=== PATIENT | male | born 1975 | race Caucasian/White ===

== ENCOUNTER → 2018-07-27 | Outpatient (CLI) | payer OTHER ==
[~2018-07-27] MED LIST: LORA1 PO; MORP20L SL; PROM25 PO; Prilosec Otc20 MG
[2018-07-27 18:55] LABS: BASOPHILS ABSOLUTE AUTO 0.08 K/mm3 (0.00-0.23); BASOPHILS PERCENT AUTO 1 % (0-2); EOSINOPHILS ABSOLUTE AUTO 0.15 K/mm3 (0.00-0.68); EOSINOPHILS PERCENT AUTO 2 % (0-6); Hematocrit 29.5 % (37.0-53.0); Hemoglobin 10.5 g/dL (13.5-17.5); IMMATURE GRAN ABSOLUTE AUTO 0.05 K/mm3 (0.00-0.10); IMMATURE GRAN PERCENT AUTO 1 % (0-1); LYMPHOCYTES PERCENT AUTO 17 % (21-46); MONOCYTES ABSOLUTE AUTO 0.97 K/mm3 (0.16-1.47); MONOCYTES PERCENT AUTO 12 % (4-13); Mean Corpuscular HGB 38.3 pg (26.0-34.0); Mean Corpuscular HGB Conc 35.6 g/dL (31.5-36.5); Mean Corpuscular Volume 108 fL (80-100); Mean Platelet Volume 8.9 fL (9.1-12.4); NEUTROPHILS ABSOLUTE AUTO 5.25 K/mm3 (1.96-9.15); NEUTROPHILS PERCENT AUTO 67 % (41-73); NRBC ABSOLUTE 0.05 K/mm3 (0.00-0.02); NRBC Auto 0.6 /100 WBC (0.0-0.2); RDW Coefficient Variation 17.2 % (11.7-14.2); RDW Standard Deviation 67.9 fL (35.1-46.3); Red Blood Cell Count 2.74 M/mm3 (4.30-5.90)
[2018-07-27 19:07] LABS: Anion Gap 9 mmol/L (6-16); Blood Urea Nitrogen 3 mg/dL (8-24); Bun/Creatinine Ratio 5.4 (12.0-20.0); CO2, Blood 27 mmol/L (21-32); Calcium, Blood 8.3 mg/dL (8.5-10.1); Chloride, Blood 100 mmol/L (98-108); Creatinine, Blood 0.56 mg/dL (0.60-1.20); Glomerular Filtration Rate >60 (60-); Glucose, Blood 121 mg/dL (70-99); Potassium, Blood 3.4 mmol/L (3.5-5.5); Sodium, Blood 136 mmol/L (136-145)
[2018-07-27 19:16] LABS: Platelet Count 96 K/mm3 (150-400)
== END | disposition home or self-care (01) ==
LOC: LAB EV 18:50 → LAB SHORT 18:50
PROVIDERS: Family Medicine
DX: L03.031 Cellulitis of right toe (principal)
CPT/HCPCS: 80048; 85025; 87040; 87077; 87186

== ENCOUNTER 2018-09-25 16:51 | Inpatient (IN) | payer OTHER ==
[~2018-09-25] VITALS: Ht 167.6 cm; Wt 109.4 kg
[2018-09-25 17:37] LABS: BASOPHILS ABSOLUTE AUTO 0.06 K/mm3 (0.00-0.23); BASOPHILS PERCENT AUTO 1 % (0-2); EOSINOPHILS ABSOLUTE AUTO 0.13 K/mm3 (0.00-0.68); EOSINOPHILS PERCENT AUTO 1 % (0-6); Hematocrit 30.3 % (37.0-53.0); Hemoglobin 11.1 g/dL (13.5-17.5); IMMATURE GRAN ABSOLUTE AUTO 0.15 K/mm3 (0.00-0.10); IMMATURE GRAN PERCENT AUTO 2 % (0-1); LYMPHOCYTES ABSOLUTE AUTO 0.63 K/mm3 (0.84-5.20); LYMPHOCYTES PERCENT AUTO 6 % (21-46); MONOCYTES ABSOLUTE AUTO 1.12 K/mm3 (0.16-1.47); MONOCYTES PERCENT AUTO 11 % (4-13); Mean Corpuscular HGB 39.2 pg (26.0-34.0); Mean Corpuscular HGB Conc 36.6 g/dL (31.5-36.5); Mean Corpuscular Volume 107 fL (80-100); Mean Platelet Volume 9.2 fL (9.1-12.4); NEUTROPHILS ABSOLUTE AUTO 7.76 K/mm3 (1.96-9.15); NEUTROPHILS PERCENT AUTO 79 % (41-73); NRBC ABSOLUTE 0.06 K/mm3 (0.00-0.02); NRBC Auto 0.6 /100 WBC (0.0-0.2); Platelet Count 97 K/mm3 (150-400); RDW Coefficient Variation 17.3 % (11.7-14.2); RDW Standard Deviation 66.8 fL (35.1-46.3); Red Blood Cell Count 2.83 M/mm3 (4.30-5.90); White Blood Cell Count 9.85 K/mm3 (4.00-11.30)
[2018-09-25 18:11] LABS: Albumin, Blood 1.9 g/dL (3.4-5.0); Albumin/Globulin Ratio 0.4 (0.8-1.8); Bilirubin, Total 38.1 mg/dL (0.1-1.0); Bun/Creatinine Ratio 15.2 (12.0-20.0); Calcium, Blood 8.2 mg/dL (8.5-10.1); Creatinine, Blood 1.58 mg/dL (0.60-1.20); Globulin, Blood 5.2 g/dL (2.2-4.0); Total Protein, Blood 7.1 g/dL (6.4-8.2)
[2018-09-25] MEDS ORDERED: Prilosec Otc20 MG (18:43)
[2018-09-25 19:03] LABS: Ethanol (Alcohol), Blood, Med <3 mg/dL
[2018-09-25 19:42] LABS: International Normalized Ratio 2.62; Prothrombin Time Results 25.4 Sec (9.7-11.5)
[2018-09-25 20:33] LABS: RETIC HGB EQUIVALENT 41.8 pg (28.20-36.60); RETICULOCYTE ABSOLUTE 0.2515 M/mm3 (0.0200-0.1100); RETICULOCYTE COUNT PERCENT 8.92 % (0.50-2.50)
[2018-09-26 05:26] LABS: BASOPHILS ABSOLUTE AUTO 0.02 K/mm3 (0.00-0.23); BASOPHILS PERCENT AUTO 0 % (0-2); EOSINOPHILS ABSOLUTE AUTO 0.03 K/mm3 (0.00-0.68); EOSINOPHILS PERCENT AUTO 0 % (0-6); Hematocrit 28.2 % (37.0-53.0); Hemoglobin 10.3 g/dL (13.5-17.5); IMMATURE GRAN ABSOLUTE AUTO 0.11 K/mm3 (0.00-0.10); IMMATURE GRAN PERCENT AUTO 1 % (0-1); LYMPHOCYTES ABSOLUTE AUTO 0.37 K/mm3 (0.84-5.20); LYMPHOCYTES PERCENT AUTO 4 % (21-46); MONOCYTES ABSOLUTE AUTO 0.43 K/mm3 (0.16-1.47); MONOCYTES PERCENT AUTO 4 % (4-13); Mean Corpuscular HGB 38.1 pg (26.0-34.0); Mean Corpuscular HGB Conc 36.5 g/dL (31.5-36.5); Mean Platelet Volume 9.1 fL (9.1-12.4); NEUTROPHILS ABSOLUTE AUTO 9.31 K/mm3 (1.96-9.15); NEUTROPHILS PERCENT AUTO 91 % (41-73); NRBC ABSOLUTE 0.05 K/mm3 (0.00-0.02); NRBC Auto 0.5 /100 WBC (0.0-0.2); Platelet Count 92 K/mm3 (150-400); RDW Standard Deviation 63.6 fL (35.1-46.3); White Blood Cell Count 10.27 K/mm3 (4.00-11.30)
[2018-09-26 05:36] LABS: Mean Corpuscular Volume 104 fL (80-100)
[2018-09-26 06:29] LABS: Percent Saturation 78.9 % (20.0-50.0)
[2018-09-26 07:09] LABS: Albumin, Blood 1.7 g/dL (3.4-5.0); Albumin/Globulin Ratio 0.4 (0.8-1.8); Bilirubin, Total 36.1 mg/dL (0.1-1.0); Bun/Creatinine Ratio 17.1 (12.0-20.0); Calcium, Blood 8.4 mg/dL (8.5-10.1); Creatinine, Blood 1.52 mg/dL (0.60-1.20); Globulin, Blood 4.8 g/dL (2.2-4.0); Potassium, Blood 2.7 mmol/L (3.5-5.5); Total Protein, Blood 6.5 g/dL (6.4-8.2)
--- NOTE | 2018-09-26 07:23 | NUR ---
a+o, but sleepy, iv in RAC positional so frequently moved arm very little respons from pt, jandiced r/hreditary, critical lactic acid reported to cn trending down so no call to hospitalist, call light in reach, ns infusing with no s/sx of infection or infiltration, room air
--- NOTE | 2018-09-26 14:24 | NUR ---
Initial Visit: Palliative Care Consult for advanced care planning. Pt is A&O but appears to be confused at times as evidenced by lack of response to questions. Skin is jaundice and appears mildly lethargic. Pt's terri Fleming present during visit. Engaged in therapeutic conversation regarding Pt's goals of care. Bernadette helps with discussion due to Pt's intermittent confusion. Pt lives at home with Bernadette and her 10 year old daughter. Pt also has a 24 year old daughter that lives close by. Bernadette reports adequate support between herself, Pt's oldest daughter and his parents. Bernadette reports the goals are to do interventions to keep his cirrohis from progressing too fast. Pt's wishes are to abstain from drinking and reports his last drink was on Super [employer] Friday. Pt and Bernadette are also interested in education about appropriate foods to eat. Discussed AD/POLST with Pt and Bernadette. Both expresses interest. Educated on AD and POLST with the importance of discussion with family so all parties are aware of Pt's wishes. Pt reports no other concerns at this time. Spoke with Pt's nurse Harvey and he reports no concerns at this time. Spoke with Dr Boyce earlier in the day and requested to have discussion with Pt on advance care plan. Plan: Placed Dietitian referral. Obtain copy of POLST/AD once completed. Will remain available.
--- NOTE | 2018-09-26 23:46 | NUR ---
PT WAS ADMINISTERED IV POTASSIUM PER ORDER. PT WAS PLACED ON TELEMETRY MONITORING DURING THAT ADMINISTRATION PER PROTOCOL. THE INFUSION HAS NOW COMPLETED AND THE TELEMETRY MONITORING HAS BEEN DISCONTINUED. PT TOLERATED THE INFUSION WITHOUT ADVERSE EFFECTS.
--- NOTE | 2018-09-27 05:24 | NUR ---
VSS, AFEBRILE, A/O BUT DELAYED RESPONSES, SBA TO BSC, AT THE BEDSIDE AND VERY HELPFUL, JAUNDICE, ASCITES, VERY RESTLESS UNTIL AFTER MIDNOC, THEN SLEPT WELL, NEW 20G IN R FA, TELE USED DURING K+ RIDER, THEN D/C'D, IV ALBUMIN BID, FREQ MESS IN THE BATHROOM NEEDS HOUSEKEEPING TO CLEAN, ASK FIRST BEFORE GIVING LACTULOSE DUE TO UNCONTROLLABLE DIARRHEA
[2018-09-27 07:58] LABS: BASOPHILS ABSOLUTE AUTO 0.01 K/mm3 (0.00-0.23); BASOPHILS PERCENT AUTO 0 % (0-2); EOSINOPHILS ABSOLUTE AUTO 0.04 K/mm3 (0.00-0.68); EOSINOPHILS PERCENT AUTO 0 % (0-6); Hematocrit 24.4 % (37.0-53.0); Hemoglobin 8.7 g/dL (13.5-17.5); IMMATURE GRAN PERCENT AUTO 1 % (0-1); LYMPHOCYTES ABSOLUTE AUTO 0.74 K/mm3 (0.84-5.20); LYMPHOCYTES PERCENT AUTO 7 % (21-46); MONOCYTES ABSOLUTE AUTO 1.13 K/mm3 (0.16-1.47); MONOCYTES PERCENT AUTO 10 % (4-13); Mean Corpuscular HGB 38.5 pg (26.0-34.0); Mean Corpuscular HGB Conc 35.7 g/dL (31.5-36.5); Mean Platelet Volume 9.1 fL (9.1-12.4); NEUTROPHILS ABSOLUTE AUTO 9.04 K/mm3 (1.96-9.15); NEUTROPHILS PERCENT AUTO 82 % (41-73); NRBC ABSOLUTE 0.07 K/mm3 (0.00-0.02); NRBC Auto 0.6 /100 WBC (0.0-0.2); Platelet Count 81 K/mm3 (150-400); RDW Coefficient Variation 17.5 % (11.7-14.2); RDW Standard Deviation 67.8 fL (35.1-46.3); Red Blood Cell Count 2.26 M/mm3 (4.30-5.90); White Blood Cell Count 11.06 K/mm3 (4.00-11.30)
[2018-09-27 08:08] LABS: Mean Corpuscular Volume 108 fL (80-100)
[2018-09-27 08:15] LABS: International Normalized Ratio 2.34
[2018-09-27 08:36] LABS: Albumin, Blood 2.5 g/dL (3.4-5.0); Albumin/Globulin Ratio 0.7 (0.8-1.8); Bilirubin, Total 39.6 mg/dL (0.1-1.0); Calcium, Blood 8.6 mg/dL (8.5-10.1); Creatinine, Blood 1.62 mg/dL (0.60-1.20); Globulin, Blood 3.5 g/dL (2.2-4.0); Potassium, Blood 2.5 mmol/L (3.5-5.5)
--- NOTE | 2018-09-27 16:44 | NUR ---
PERMISSION TO PROVIDE CARE. PATIENT GAVE ME PERMISSION TO PROVIDE CARE AND ACCESS CHART ON 09/28/18
--- NOTE | 2018-09-27 17:11 | NUR ---
SHIFT SUMMARY. PT MORE LETHARGIC AND CONFUSED THIS AM THAN YESTERDAY. PT BECAME MORE ALERT AND ORIENTATED DAY PROGRESSED TO AFTERNOON. SEVERAL FRIENDS AND FAMILY IN ROOM, PT WAS ENGAGING WELL. PT DENIES PAIN, SOB, N/V. CONTINES WITH LOW POTASSIUM THAT WAS SUPPLMENTED TODAY. CLINIMIX STARTED. PO VIT K GIVEN FOR CONTINUED ELEVATED INR. DR. SHANNON IN TODAY TO SPEAK WITH PT AND SPOUSE. PT WITH GOOD MEAL AND FLUID INTAKE. 3 LOOSE BM'S THUS FAR TODAY, EVENING DOSE OF LACTOLOSE HELD. NO OTHER CHANGES.
[2018-09-28 03:06] LABS: HBSAG SCREEN Negative (Negative); HEP B CORE AB, TOT Negative (Negative); HEP C VIRUS AB 0.2 (0.0-0.9)
--- NOTE | 2018-09-28 05:22 | NUR ---
VSS, AFEBRILE, A/O BUT DELAYED RESPONSES, RESTLESS OVERNOC, JAUNDICE, ASCITES, FAMILY AT THE BEDSIDE OVERNOC, NO COMPLAINTS OF UNCONTROLLED DIARRHEA OVERNOC, 20G R FA, CLINIMIX IVF, UNSTEADY GAIT BUT FAMILY STAYS WITH HIM, SLEEPS DEEPLY. NO COMPLAINTS.
[2018-09-28 05:38] LABS: BASOPHILS ABSOLUTE AUTO 0.01 K/mm3 (0.00-0.23); BASOPHILS PERCENT AUTO 0 % (0-2); EOSINOPHILS ABSOLUTE AUTO 0.09 K/mm3 (0.00-0.68); EOSINOPHILS PERCENT AUTO 1 % (0-6); Hematocrit 26.5 % (37.0-53.0); Hemoglobin 9.4 g/dL (13.5-17.5); IMMATURE GRAN ABSOLUTE AUTO 0.13 K/mm3 (0.00-0.10); IMMATURE GRAN PERCENT AUTO 1 % (0-1); LYMPHOCYTES ABSOLUTE AUTO 0.37 K/mm3 (0.84-5.20); LYMPHOCYTES PERCENT AUTO 4 % (21-46); MONOCYTES ABSOLUTE AUTO 0.92 K/mm3 (0.16-1.47); MONOCYTES PERCENT AUTO 10 % (4-13); Mean Corpuscular HGB 38.8 pg (26.0-34.0); Mean Corpuscular HGB Conc 35.5 g/dL (31.5-36.5); Mean Corpuscular Volume 110 fL (80-100); Mean Platelet Volume 9.3 fL (9.1-12.4); NEUTROPHILS ABSOLUTE AUTO 8.09 K/mm3 (1.96-9.15); NEUTROPHILS PERCENT AUTO 84 % (41-73); NRBC ABSOLUTE 0.06 K/mm3 (0.00-0.02); NRBC Auto 0.6 /100 WBC (0.0-0.2); Platelet Count 83 K/mm3 (150-400); RDW Coefficient Variation 17.6 % (11.7-14.2); RDW Standard Deviation 69.5 fL (35.1-46.3); Red Blood Cell Count 2.42 M/mm3 (4.30-5.90); White Blood Cell Count 9.61 K/mm3 (4.00-11.30)
[2018-09-28 05:48] LABS: International Normalized Ratio 2.21; Prothrombin Time Results 21.8 Sec (9.7-11.5)
[2018-09-28 06:07] LABS: Magnesium, Blood 2.6 mg/dL (1.6-2.4)
[2018-09-28 06:11] LABS: Alanine Aminotransfer (ALT/SGP 55 U/L (12-78); Albumin, Blood 2.7 g/dL (3.4-5.0); Albumin/Globulin Ratio 0.8 (0.8-1.8); Alk Phos 72 U/L (50-136); Anion Gap 10 mmol/L (6-16); Aspartate Aminotrans (AST/SGOT 68 U/L (12-37); Bilirubin, Total 42.1 mg/dL (0.1-1.0); Blood Urea Nitrogen 26 mg/dL (8-24); Bun/Creatinine Ratio 20.8 (12.0-20.0); CO2, Blood 24 mmol/L (21-32); Calcium, Blood 9.1 mg/dL (8.5-10.1); Chloride, Blood 100 mmol/L (98-108); Creatinine, Blood 1.25 mg/dL (0.60-1.20); Globulin, Blood 3.5 g/dL (2.2-4.0); Glomerular Filtration Rate >60 (60-); Glucose, Blood 133 mg/dL (70-99); Potassium, Blood 2.5 mmol/L (3.5-5.5); Sodium, Blood 134 mmol/L (136-145); Total Protein, Blood 6.2 g/dL (6.4-8.2)
--- NOTE | 2018-09-28 10:18 | NUR ---
PERMISSION FOR CARE STUDENT NURSE ZEYNEP PISANO RECEIVED PERMISSION TO PROVIDE CARE TO PATIENT ON 09-29-18 ZEYNEP PISANO
[2018-09-28 11:44] LABS: Antinuclear Antibody Screen Negative (Negative)
--- NOTE | 2018-09-28 12:34 | NUR ---
STUDENT NURSE NOTE OFFERED PATIENT A SHOWER, WHICH HE REFUSED. HE REQUESTED TO JUST REST FOR NOW
--- NOTE | 2018-09-28 18:06 | NUR ---
SHFIT SUMMARY. A&OX4, SBA TO BATHROOM, FAMILY ASSISTS PT WHEN IN ROOM, OTHERWISE BED ALARM IS UTILIZED PT DOES NOT CONSISTENTLY CALL FOR ASSISTANCE. PT MORE ALERT, ENGAGED WITH CONVERSATION, AND IMPROVED MEMORY WHEN COMPARED TO YESTERDAY. 4 LOOSE BM'S THIS SHIFT. PT CONTINUES WITH HYPOKALEMIA, SUPPLEMENTED WITH PO K-DUR THIS AM. SKIN JAUNDICE APPEARS TO BE LIGHTENING UP. NO OTHER CHANGES.
[2018-09-29 04:39] LABS: BASOPHILS ABSOLUTE AUTO 0.01 K/mm3 (0.00-0.23); BASOPHILS PERCENT AUTO 0 % (0-2); EOSINOPHILS ABSOLUTE AUTO 0.26 K/mm3 (0.00-0.68); EOSINOPHILS PERCENT AUTO 3 % (0-6); Hematocrit 25.2 % (37.0-53.0); Hemoglobin 9.1 g/dL (13.5-17.5); IMMATURE GRAN ABSOLUTE AUTO 0.08 K/mm3 (0.00-0.10); IMMATURE GRAN PERCENT AUTO 1 % (0-1); LYMPHOCYTES ABSOLUTE AUTO 0.75 K/mm3 (0.84-5.20); LYMPHOCYTES PERCENT AUTO 8 % (21-46); MONOCYTES PERCENT AUTO 10 % (4-13); Mean Corpuscular HGB 39.9 pg (26.0-34.0); Mean Corpuscular HGB Conc 36.1 g/dL (31.5-36.5); Mean Corpuscular Volume 111 fL (80-100); Mean Platelet Volume 8.6 fL (9.1-12.4); NEUTROPHILS ABSOLUTE AUTO 7.49 K/mm3 (1.96-9.15); NEUTROPHILS PERCENT AUTO 78 % (41-73); NRBC ABSOLUTE 0.06 K/mm3 (0.00-0.02); NRBC Auto 0.6 /100 WBC (0.0-0.2); Platelet Count 74 K/mm3 (150-400); RDW Coefficient Variation 17.6 % (11.7-14.2); RDW Standard Deviation 70.8 fL (35.1-46.3); Red Blood Cell Count 2.28 M/mm3 (4.30-5.90); White Blood Cell Count 9.59 K/mm3 (4.00-11.30)
[2018-09-29 04:52] LABS: International Normalized Ratio 2.17; Prothrombin Time Results 21.4 Sec (9.7-11.5)
--- NOTE | 2018-09-29 05:18 | NUR ---
SHIFT SUMMARY PT SLEPT ON/OFF T/O NIGHT. AOX4, ANSWERS QUESTIONS SLOWLY BUT APPROPRIATE. DENIES PAIN OR SOB. VSS. PT REPORTED NAUSEA LAST NIGHT & WAS MEDICATED 1X W/ZOFRAN PER ORDERS, DENIES ANY NAUSEA THIS AM. ABD IS DISTENDED/FIRM TO TOUCH PT DENIES TENDERNESS. PT SKIN VERY JAUNDICE. SBA W/AMBULATION TO RESTROOM. CALL LIGHT IS IN REACH & I WILL CONT TO MONITOR PT UNTIL DAY SHIFT RN ASSUMES CARE.
[2018-09-29 05:22] LABS: Alanine Aminotransfer (ALT/SGP 62 U/L (12-78); Albumin, Blood 2.9 g/dL (3.4-5.0); Alk Phos 65 U/L (50-136); Anion Gap 8 mmol/L (6-16); Aspartate Aminotrans (AST/SGOT 66 U/L (12-37); Bilirubin, Total 40.5 mg/dL (0.1-1.0); Blood Urea Nitrogen 21 mg/dL (8-24); Bun/Creatinine Ratio 17.1 (12.0-20.0); CO2, Blood 26 mmol/L (21-32); Calcium, Blood 9.1 mg/dL (8.5-10.1); Chloride, Blood 103 mmol/L (98-108); Creatinine, Blood 1.23 mg/dL (0.60-1.20); Globulin, Blood 2.8 g/dL (2.2-4.0); Glomerular Filtration Rate >60 (60-); Glucose, Blood 118 mg/dL (70-99); Sodium, Blood 137 mmol/L (136-145); Total Protein, Blood 5.7 g/dL (6.4-8.2)
--- NOTE | 2018-09-29 19:03 | NUR ---
SHIFT SUMMARY AMBER WAS VERY SLEEPY TODAY. HARD TO GET HIM TO WAKE UP ENOUGH TO EAT MEALS. SBA TO BR, HAD 4-5 BMS TODAY, HOLDING LACTULOSE NOW. FAMILY VISITED FOR MOST OF THE DAY, BED ALARM ON WHEN FAMILY NOT PRESENT. RED AND SCALY BLE, PT SAYS THIS IS NORMAL FOR HIM D/T HIS PSORIASIS. MOSTLY ORIENTED, VERY SLOW TO ANSWER. DENIED PAIN. TOOK PILLS PRESCRIBED. WCTM
[2018-09-30 04:55] LABS: BASOPHILS ABSOLUTE AUTO 0.02 K/mm3 (0.00-0.23); BASOPHILS PERCENT AUTO 0 % (0-2); EOSINOPHILS ABSOLUTE AUTO 0.41 K/mm3 (0.00-0.68); EOSINOPHILS PERCENT AUTO 3 % (0-6); Hematocrit 25.6 % (37.0-53.0); Hemoglobin 8.9 g/dL (13.5-17.5); IMMATURE GRAN ABSOLUTE AUTO 0.13 K/mm3 (0.00-0.10); IMMATURE GRAN PERCENT AUTO 1 % (0-1); LYMPHOCYTES ABSOLUTE AUTO 0.86 K/mm3 (0.84-5.20); LYMPHOCYTES PERCENT AUTO 7 % (21-46); MONOCYTES ABSOLUTE AUTO 1.41 K/mm3 (0.16-1.47); MONOCYTES PERCENT AUTO 12 % (4-13); Mean Corpuscular HGB 38.7 pg (26.0-34.0); Mean Corpuscular HGB Conc 34.8 g/dL (31.5-36.5); Mean Corpuscular Volume 111 fL (80-100); Mean Platelet Volume 9.3 fL (9.1-12.4); NEUTROPHILS ABSOLUTE AUTO 9.24 K/mm3 (1.96-9.15); NEUTROPHILS PERCENT AUTO 77 % (41-73); NRBC ABSOLUTE 0.03 K/mm3 (0.00-0.02); NRBC Auto 0.2 /100 WBC (0.0-0.2); Platelet Count 77 K/mm3 (150-400); RDW Coefficient Variation 18.1 % (11.7-14.2); RDW Standard Deviation 72.9 fL (35.1-46.3); White Blood Cell Count 12.07 K/mm3 (4.00-11.30)
[2018-09-30 05:07] LABS: International Normalized Ratio 2.31; Prothrombin Time Results 22.7 Sec (9.7-11.5)
--- NOTE | 2018-09-30 05:07 | NUR ---
SHIFT SUMMARY PT VERY SLEEPY THIS EVENING. EASILY WAKES BUT QUICKLY FALLS BACK ASLEEP. SLEPT ALL THROUGH THE NIGHT ONLY WAKING A COUPLE TIMES ACCORDING TO FAMILY AT BEDSIDE. STOMACH VERY DISTENDED AND FIRM, SKIN JAUNDICED. PT ATE THE MAJORITY OF HIS DINNER. CONTINUES TO HAVE CLINIMIX RUNNING AT 50 ML/HR. DIFFICULT TO ASSESS MENTATION AT TIMES DUE TO PT OCCASSIONALLY BEING UNWILLING TO ANSWER QUESTIONS. PT DENIES PAIN OR SOB. FEBRILE THIS EVENING WITH TEMP OF 101.4. TYLENOL GIVEN AND EFFECTIVE. PT AFEBRILE AT THIS TIME. OTHERWISE VSS AND NO ACUTE CHANGES.
[2018-09-30 05:32] LABS: Alanine Aminotransfer (ALT/SGP 60 U/L (12-78); Albumin, Blood 2.9 g/dL (3.4-5.0); Alk Phos 65 U/L (50-136); Anion Gap 8 mmol/L (6-16); Aspartate Aminotrans (AST/SGOT 56 U/L (12-37); Bilirubin, Total 45.6 mg/dL (0.1-1.0); Blood Urea Nitrogen 27 mg/dL (8-24); Bun/Creatinine Ratio 23.7 (12.0-20.0); CO2, Blood 24 mmol/L (21-32); Calcium, Blood 8.9 mg/dL (8.5-10.1); Chloride, Blood 103 mmol/L (98-108); Creatinine, Blood 1.14 mg/dL (0.60-1.20); Globulin, Blood 2.8 g/dL (2.2-4.0); Glomerular Filtration Rate >60 (60-); Glucose, Blood 149 mg/dL (70-99); Potassium, Blood 3.1 mmol/L (3.5-5.5); Sodium, Blood 135 mmol/L (136-145); Total Protein, Blood 5.7 g/dL (6.4-8.2)
--- NOTE | 2018-09-30 16:04 | NUR ---
PERMISSION TO TREAT PATIENT GAVE STUDENT NURSE PERMISSION TO TREAT AND ACCESS RECORDS FOR CLINICAL ON 10/01/2018.
--- NOTE | 2018-09-30 17:17 | NUR ---
DIFFICULTY OBTAINING IV ACCESS
--- NOTE | 2018-09-30 18:40 | NUR ---
SHIFT SUMMARY OX3; CONFUSED AT TIMES; JAUNDICE; LIVER FAILURE; PPN INFUSING; DENIES ANY PAIN; K+PHOS INFUSING. INDEPENDENT IN ROOM. FAMILY IN ROOM AND ATTENTIVE. DECREASED APPETITE. TAKING PO FLUIDS WELL. ABDOMINAL ASCITES.
--- NOTE | 2018-10-01 04:09 | NUR ---
SHIFT SUMMARY A/O X3, FORGETFUL/CONFUSED AT TIMES. COOPERATIVE WITH CARE WITH MINIMAL RE-DIRECTION. GF/FIANCE AT BEDSIDE. DENIES PAIN/DISCOMFORT. INDEPENDENT IN ROOM. TPN RUNNING 96 ML/HR WITHOUT COMPLICATION. APPEARED TO REST MUCH OF SHIFT. NO ACUTE CHANGES OVERNIGHT. 24 HOUR URINE COLLECTION STARTED. BED IN LOWEST POSITION. CALL LIGHT AND BELONINGS WITHIN REACH. WCTM. REPORT TO ONCOMING RN.
[2018-10-01 05:21] LABS: BASOPHILS ABSOLUTE AUTO 0.03 K/mm3 (0.00-0.23); BASOPHILS PERCENT AUTO 0 % (0-2); EOSINOPHILS ABSOLUTE AUTO 0.53 K/mm3 (0.00-0.68); EOSINOPHILS PERCENT AUTO 5 % (0-6); Hemoglobin 9.1 g/dL (13.5-17.5); IMMATURE GRAN ABSOLUTE AUTO 0.11 K/mm3 (0.00-0.10); IMMATURE GRAN PERCENT AUTO 1 % (0-1); LYMPHOCYTES ABSOLUTE AUTO 0.86 K/mm3 (0.84-5.20); LYMPHOCYTES PERCENT AUTO 8 % (21-46); MONOCYTES ABSOLUTE AUTO 1.53 K/mm3 (0.16-1.47); MONOCYTES PERCENT AUTO 14 % (4-13); Mean Corpuscular HGB 39.4 pg (26.0-34.0); Mean Corpuscular Volume 113 fL (80-100); Mean Platelet Volume 9.2 fL (9.1-12.4); NEUTROPHILS ABSOLUTE AUTO 8.05 K/mm3 (1.96-9.15); NEUTROPHILS PERCENT AUTO 72 % (41-73); NRBC ABSOLUTE 0.02 K/mm3 (0.00-0.02); NRBC Auto 0.2 /100 WBC (0.0-0.2); Platelet Count 75 K/mm3 (150-400); RDW Coefficient Variation 18.3 % (11.7-14.2); RDW Standard Deviation 76.5 fL (35.1-46.3); Red Blood Cell Count 2.31 M/mm3 (4.30-5.90); White Blood Cell Count 11.11 K/mm3 (4.00-11.30)
[2018-10-01 05:34] LABS: International Normalized Ratio 2.07; Prothrombin Time Results 20.5 Sec (9.7-11.5)
[2018-10-01 05:53] LABS: Magnesium, Blood 2.6 mg/dL (1.6-2.4)
[2018-10-01 06:05] LABS: Alanine Aminotransfer (ALT/SGP 58 U/L (12-78); Albumin, Blood 2.8 g/dL (3.4-5.0); Alk Phos 74 U/L (50-136); Anion Gap 9 mmol/L (6-16); Aspartate Aminotrans (AST/SGOT 50 U/L (12-37); Blood Urea Nitrogen 32 mg/dL (8-24); Bun/Creatinine Ratio 26.9 (12.0-20.0); CO2, Blood 22 mmol/L (21-32); Calcium, Blood 8.7 mg/dL (8.5-10.1); Chloride, Blood 103 mmol/L (98-108); Creatinine, Blood 1.19 mg/dL (0.60-1.20); Glomerular Filtration Rate >60 (60-); Glucose, Blood 152 mg/dL (70-99); Phosphorus, Blood 1.7 mg/dL (2.5-4.9); Potassium, Blood 3.5 mmol/L (3.5-5.5); Sodium, Blood 134 mmol/L (136-145); Triglycerides 110 mg/dL (30-160)
[2018-10-01 06:12] LABS: Bilirubin, Total 47.3 mg/dL (0.1-1.0); Globulin, Blood 2.8 g/dL (2.2-4.0); Total Protein, Blood 5.6 g/dL (6.4-8.2)
[2018-10-01 09:07] LABS: International Normalized Ratio 2.09; Prothrombin Time Results 20.7 Sec (9.7-11.5)
--- NOTE | 2018-10-01 11:02 | NUR ---
PT RETURNED FROM PERICENTESIS VIA W/C AND IN NO ACUTE DISTRESS;3.3L REMOVED. FAMILY AT BEDSIDE.
[2018-10-01 11:20] LABS: Automated BF WBC Count 0.138 K/mm3 (0-999); Body Fluid WBC Count 138 /mm3 (0-999)
[2018-10-01 11:37] LABS: Albumin, Body Fluid 0.9 g/dL; Protein, Body Fluid 1.5 g/dL
[2018-10-01 12:25] LABS: RBC Count, Body Fluid 194 /mm3 (0-0)
[2018-10-01 12:32] LABS: Appearance, Body Fluid Clear (Clear); Color, Body Fluid L Yellow (None-Yellow)
[2018-10-01 12:54] LABS: Total Cell Count, Body Fluid 100
--- NOTE | 2018-10-01 18:35 | NUR ---
REPORTED PT'S BLADDER SCAN OF >[address] BEARDEN LEFT VOICE MESSAGE.
--- NOTE | 2018-10-01 18:45 | NUR ---
SHIFT SUMMARY OX3 BUT SLOW TO RESPOND AND AGITATED AT TIMES. LIVER FAILURE DUE TO ETOH HX. JAUNDICE. PARACENTESIS TODAY 3.3L DRAINED. PT SLEEPING MUCH OF THE DAY. FAMILY AT BEDSIDE AND ATTENTIVE. DECREASED URINE OUTPUT DUE TO RETENTION. BLADDER SCAN THIS P.M. SHOWED >400. PT ATTEMPTED TO USE URINAL WITHOUT SUCCESS-REPORTED TO DR. BEARDEN. PPN INFUSING. FOLLOWED BY DR. MIRTHA PHELPS. 24 HOUR URINE COLLECTION IN PROGRESS. INDEPENDENT IN ROOM.
[2018-10-02 05:23] LABS: BASOPHILS ABSOLUTE AUTO 0.05 K/mm3 (0.00-0.23); BASOPHILS PERCENT AUTO 0 % (0-2); EOSINOPHILS ABSOLUTE AUTO 0.44 K/mm3 (0.00-0.68); EOSINOPHILS PERCENT AUTO 3 % (0-6); Hematocrit 25.4 % (37.0-53.0); Hemoglobin 8.6 g/dL (13.5-17.5); IMMATURE GRAN ABSOLUTE AUTO 0.15 K/mm3 (0.00-0.10); IMMATURE GRAN PERCENT AUTO 1 % (0-1); LYMPHOCYTES ABSOLUTE AUTO 1.02 K/mm3 (0.84-5.20); LYMPHOCYTES PERCENT AUTO 8 % (21-46); MONOCYTES ABSOLUTE AUTO 1.85 K/mm3 (0.16-1.47); MONOCYTES PERCENT AUTO 14 % (4-13); Mean Corpuscular HGB Conc 33.9 g/dL (31.5-36.5); Mean Platelet Volume 10.1 fL (9.1-12.4); NEUTROPHILS PERCENT AUTO 74 % (41-73); NRBC ABSOLUTE 0.02 K/mm3 (0.00-0.02); NRBC Auto 0.2 /100 WBC (0.0-0.2); Platelet Count 69 K/mm3 (150-400); RDW Coefficient Variation 18.2 % (11.7-14.2); RDW Standard Deviation 79.2 fL (35.1-46.3); Red Blood Cell Count 2.15 M/mm3 (4.30-5.90); White Blood Cell Count 13.21 K/mm3 (4.00-11.30)
[2018-10-02 05:35] LABS: Mean Corpuscular Volume 118 fL (80-100)
[2018-10-02 05:46] LABS: International Normalized Ratio 2.11; Magnesium, Blood 2.5 mg/dL (1.6-2.4); Prothrombin Time Results 20.9 Sec (9.7-11.5)
[2018-10-02 05:58] LABS: Alanine Aminotransfer (ALT/SGP 52 U/L (12-78); Albumin, Blood 2.5 g/dL (3.4-5.0); Alk Phos 60 U/L (50-136); Anion Gap 9 mmol/L (6-16); Aspartate Aminotrans (AST/SGOT 54 U/L (12-37); Blood Urea Nitrogen 41 mg/dL (8-24); Bun/Creatinine Ratio 31.3 (12.0-20.0); CO2, Blood 21 mmol/L (21-32); Calcium, Blood 8.5 mg/dL (8.5-10.1); Chloride, Blood 102 mmol/L (98-108); Creatinine, Blood 1.31 mg/dL (0.60-1.20); Glomerular Filtration Rate >60 (60-); Glucose, Blood 163 mg/dL (70-99); Phosphorus, Blood 2.1 mg/dL (2.5-4.9); Potassium, Blood 3.7 mmol/L (3.5-5.5); Sodium, Blood 132 mmol/L (136-145)
[2018-10-02 06:01] LABS: Bilirubin, Total 45.8 mg/dL (0.1-1.0); Globulin, Blood 2.6 g/dL (2.2-4.0); Total Protein, Blood 5.1 g/dL (6.4-8.2)
--- NOTE | 2018-10-02 08:00 | NUR ---
a+o family in room, call light , room air, tpn infusing, and saline locked, walking rounds completed with day staff, family in room, fever abated with medication, as was nausea,
--- NOTE | 2018-10-02 13:24 | NUR ---
DISCUSSED WITH DIETITIAN ABOUT WHEN TO STOP PPN. PATIENT ATE 80 % BREAKFAST AND 100% LUNCH WITH AN ADDED SANDWICH. SHE WILL DISCUSS W/HOSPITALIST.
--- NOTE | 2018-10-02 15:11 | NUR ---
CALLED ABOUT PATIENT EATTING AND POSSIBLY D'C PPN. STS NEEDS TO TALK TO WHO STARTED IT FIRST. AWAITING ORDERS.
--- NOTE | 2018-10-02 18:40 | NUR ---
ALERT AND ORIENTED. SLOW TO RESPOND TO QUESTIONS. JAUNDICE W/FACE/EYES WORSE THAN REST OF BODY. NO BLEEDING NOTED AT PARACENTESIS SITE ( RT LATERAL ABD). UNLABORED RESPIRATIONS. ABD TIGHT. REVIEW WHY TAKING LACTULOSE. PPN D'C. GOOD APPETITE. WILL CONTINUE TO MONITOR.
--- NOTE | 2018-10-02 18:49 | NUR ---
BLADDER SCAN 856ML. PATIENT STS DOES NOT WANT CATH. GIVEN OPTION OF USING URINAL AND ADVISED HE NEEDS TO TRY NOW. DAUGHTER IN ROOM AND IS ABLE TO GET PATIENT TO COMPLY. AT THIS TIME IN BATHROOM. AWAITING RESULTS
--- NOTE | 2018-10-02 19:26 | NUR ---
PATIENT UNABLE TO URINATE AT THIS TIME. STS"I PEE A 5 POUND CAN OF URINE AT A TIME." REFUSES CATH AT THIS TIME. UNCOOPERATIVE. NIGHT RN GIVEN REPORT AND WILL TRY TO GET HIM TO URINATE OR GET HIS APPROVAL FOR CATH.
[2018-10-03 05:39] LABS: Hematocrit 26.1 % (37.0-53.0); Hemoglobin 9.1 g/dL (13.5-17.5); Mean Corpuscular HGB 40.3 pg (26.0-34.0); Mean Corpuscular HGB Conc 34.9 g/dL (31.5-36.5); Mean Corpuscular Volume 116 fL (80-100); Mean Platelet Volume 10.5 fL (9.1-12.4); Platelet Count 63 K/mm3 (150-400); RDW Coefficient Variation 17.9 % (11.7-14.2); RDW Standard Deviation 77.1 fL (35.1-46.3); Red Blood Cell Count 2.26 M/mm3 (4.30-5.90); White Blood Cell Count 11.35 K/mm3 (4.00-11.30)
[2018-10-03 05:50] LABS: International Normalized Ratio 2.11; Prothrombin Time Results 20.9 Sec (9.7-11.5)
[2018-10-03 06:08] LABS: Albumin, Blood 2.4 g/dL (3.4-5.0); Bun/Creatinine Ratio 34.9 (12.0-20.0); Calcium, Blood 8.2 mg/dL (8.5-10.1); Creatinine, Blood 1.52 mg/dL (0.60-1.20); Magnesium, Blood 2.7 mg/dL (1.6-2.4); Phosphorus, Blood 3.1 mg/dL (2.5-4.9); Potassium, Blood 3.4 mmol/L (3.5-5.5)
[2018-10-03 06:34] LABS: Albumin/Globulin Ratio 0.9 (0.8-1.8); Bilirubin, Total 46.4 mg/dL (0.1-1.0); Globulin, Blood 2.7 g/dL (2.2-4.0); Total Protein, Blood 5.1 g/dL (6.4-8.2)
--- NOTE | 2018-10-03 06:48 | NUR ---
SHIFT SUMMARY PT SLEPT WELL T/O NIGHT. AOX4. VSS. DENIES PAIN OR SOB. REPORTED NAUSEA & INCREASED GAS LAST NIGHT MEDICATED W/MAYLOX & REGLAN PER ORDERS. PT DENIES ANY NAUSEA THIS AM. PT HAD 825 ML TEA COLORED URINE OUTPUT THIS AM & POST VOID BLADDER SCAN SHOWED 402ML IN BLADDER. BOTH PT & REPORTED PT IT IS NORMAL FOR PT TO NOT URINATE FOR AWHILE & THEN HAVE ALOT OF OUTPUT ALL @ONCE. CALL LIGHT IS IN REACH & SPOUSE IS @BEDSIDE.
--- NOTE | 2018-10-03 17:52 | NUR ---
SUMMARY PT SITTING UP IN BED VISITING WITH FAMILY, PT HAS BEEN COOPERATIVE WITH CARE, PT HAS BEEN UP TO THE BATHROOM TO VOID AND HAS HAD SEVERAL LOOSE BM'S TODAY, VSS, NO ACUTE CHANGES, WILL CONT TO MONITOR
[2018-10-04 04:49] LABS: Hematocrit 24.3 % (37.0-53.0); Hemoglobin 8.4 g/dL (13.5-17.5); Mean Corpuscular HGB 38.7 pg (26.0-34.0); Mean Corpuscular HGB Conc 34.6 g/dL (31.5-36.5); Mean Platelet Volume 10.1 fL (9.1-12.4); Platelet Count 59 K/mm3 (150-400); RDW Coefficient Variation 17.5 % (11.7-14.2); RDW Standard Deviation 72.5 fL (35.1-46.3); Red Blood Cell Count 2.17 M/mm3 (4.30-5.90)
[2018-10-04 05:03] LABS: International Normalized Ratio 1.99; Prothrombin Time Results 19.8 Sec (9.7-11.5)
[2018-10-04 05:11] LABS: Mean Corpuscular Volume 112 fL (80-100)
[2018-10-04 05:24] LABS: Albumin, Blood 2.3 g/dL (3.4-5.0); Albumin/Globulin Ratio 0.8 (0.8-1.8); Bilirubin, Total 46.1 mg/dL (0.1-1.0); Bun/Creatinine Ratio 31.1 (12.0-20.0); Creatinine, Blood 1.83 mg/dL (0.60-1.20); Globulin, Blood 2.8 g/dL (2.2-4.0); Potassium, Blood 3.5 mmol/L (3.5-5.5); Total Protein, Blood 5.1 g/dL (6.4-8.2)
--- NOTE | 2018-10-04 06:43 | NUR ---
SHIFT SUMMARY NO ACUTE CHANGES THIS SHIFT. PT AOX4, ANSWERS QUESTIONS APPROPRIATELY & IS COOPERATIVE W/CARE. DENIES PAIN, SOB OR ANY N/V. PT HAD ROUGHLY 3 LOOSE/LIQUID GREEN/YELLOW BM THIS SHIFT. FAMILY @BEDSIDE & CALL LIGHT IN REACH. WCTM PT UNTIL DAY SHIFT RN ASSUMES CARE.
--- NOTE | 2018-10-04 17:10 | NUR ---
SUMMARY PT RESTING IN BED WATCHING TV, JC AT THE BEDSIDE, PT'S MOTHER WAS IN THE ROOM FOR MOST OF THE DAY, PT UP TO THE BATHROOM WITH MINIMAL ASSIST, PT STILL HAVING LOOSE STOOL AND DARK DARSHANA URINE, PT'S ABD APPEARS MORE DISTENDED TODAY, NEPHROLOGY CONSULT CALLED, DR BEARDEN REPORTED SHE SPOKE WITH DR DELONG AND SHE WILL SEE THE PT IN THE MORNING, VSS, NO ACUTE CHANGES, WILL CONT TO MONITOR
--- NOTE | 2018-10-04 22:40 | NUR ---
ORAL BLEEDING *LATE ENRTY* AROUND 2129 PT'S MOTHER INFORMED ME SHE HAD NOTICED PT BLEEDING FROM MOUTH WHILE SLEEPING & WAS CONCERNED. USED COTTON SWABS TO LOOK AROUND ORAL CAVITY & I NOTICED 2 SMALL BLOOD CLOTS 1x0.5 CM SITTING INSIDE LEFT CHEEK. ASSISTED PT W/ORAL CARE TO SEE WHERE BLEEDING WAS COMING FROM & PT INFORMED ME ONE OF HIS LEFT UPPER TEETH USUALLY HAS PROBLEMS W/BLEEDING. WHEN I ASSESSED MOUTH, THE GUMS ON LEFT SIDE APPEARED TO BE BLEEDING OFFERED GAUZE TO HELP SOAK UP BLOOD BUT PT REFUSED. NOTIFIED CHARGE NURSE & I WILL NOTIFY ONCOMING DAY SHIFT RN.
[2018-10-05 05:45] LABS: BASOPHILS ABSOLUTE AUTO 0.06 K/mm3 (0.00-0.23); BASOPHILS PERCENT AUTO 1 % (0-2); EOSINOPHILS ABSOLUTE AUTO 0.32 K/mm3 (0.00-0.68); EOSINOPHILS PERCENT AUTO 3 % (0-6); Hematocrit 25.5 % (37.0-53.0); Hemoglobin 8.9 g/dL (13.5-17.5); IMMATURE GRAN ABSOLUTE AUTO 0.06 K/mm3 (0.00-0.10); IMMATURE GRAN PERCENT AUTO 1 % (0-1); LYMPHOCYTES ABSOLUTE AUTO 0.82 K/mm3 (0.84-5.20); LYMPHOCYTES PERCENT AUTO 9 % (21-46); MONOCYTES PERCENT AUTO 14 % (4-13); Mean Corpuscular HGB 40.1 pg (26.0-34.0); Mean Corpuscular HGB Conc 34.9 g/dL (31.5-36.5); Mean Platelet Volume 9.8 fL (9.1-12.4); NEUTROPHILS PERCENT AUTO 73 % (41-73); Platelet Count 59 K/mm3 (150-400); RDW Coefficient Variation 17.6 % (11.7-14.2); RDW Standard Deviation 74.4 fL (35.1-46.3); Red Blood Cell Count 2.22 M/mm3 (4.30-5.90); White Blood Cell Count 9.36 K/mm3 (4.00-11.30)
[2018-10-05 05:52] LABS: Mean Corpuscular Volume 115 fL (80-100)
[2018-10-05 06:13] LABS: Albumin, Blood 2.4 g/dL (3.4-5.0); Bun/Creatinine Ratio 28.6 (12.0-20.0); Calcium, Blood 7.8 mg/dL (8.5-10.1); Creatinine, Blood 1.99 mg/dL (0.60-1.20); Potassium, Blood 3.3 mmol/L (3.5-5.5)
[2018-10-05 06:25] LABS: Albumin/Globulin Ratio 0.9 (0.8-1.8); Bilirubin, Total 46.7 mg/dL (0.1-1.0); Globulin, Blood 2.8 g/dL (2.2-4.0); Total Protein, Blood 5.2 g/dL (6.4-8.2)
--- NOTE | 2018-10-05 06:39 | NUR ---
SHIFT SUMMARY PT AWAKE ON/OFF T/O NIGHT. AOX4. VSS. DENIES PAIN OR SOB. REPORTED NAUSEA LAST NIGHT & WAS MEDICATED 1X W/ZOFRAN & 1X W/MAALOX PER ORDERS, PT REPORTS BOTH HELPED HIS NAUSEA & BELCHING. ABD FIRM BUT NON-TENDER TO PALPATION. PT HAD AT LEAST 4 LIQUID YELLOW/GREEN BM THIS SHIFT. NS RUNNING @125/HR. MOTHER HAS BEEN @BEDSIDE ALL NIGHT & HELPED PT AMBULATE TO RESTROOM. CALL LIGHT IN REACH & I WILL CONT. TO MONITOR PT.
--- NOTE | 2018-10-05 12:52 | NUR ---
Pt visit this afternoon. Pt resting in bed and denies pain at this time. Pt's mom and dad present during visit. Pt denies anxiety at this time. He reports significant nausea when taking his lactulose and the zofran is not beneficial. Engaged in therapeutic conversation about concerns and goals. Pt is hopeful that he will get to go home soon. Pt's mom and dad express concerns about not knowing Pt's prognosis. Explained to Pt and family these can be hard conversations to have but it is appropriate to have this discussion with the Dr. Pt and family report no other concerns at this time. Spoke with Pt's nurse Luzmaria regarding Pt's nausea. She also reports the Zofran is not beneficial. She is agreeable to offer different anti nausea medication. Called and spoke with Dr Wagner and requested promethazine to manage nausea. Also realyed family's wishes for Pt's prognosis. Will remain available for symptom management and therapeutic visits.
--- NOTE | 2018-10-05 18:28 | NUR ---
SHIFT SUMMARY AMBER DENIED PAIN THIS SHIFT. VERY DISTENDED ABD AND VERY JAUNDICE. SOME SHORT TERM MEMORY LOSS. FAMILY AT BS FOR MSOT OF THE DAY, BED ALARM ON WHEN FAMILY NOT PRESENT, PT FORGETS TO CALL BEFORE GETTING OOB. LACTULOSE CAUSED SOME NAUSEA, PRN PHENERGAN AND ZOFRAN GIVEN TO GOOD EFFECT. SOME BLOOD/CLOTS NOTED AROUND GUMS, DR BEARDEN AWARE. TOOK MEDS PRESCRIBED. WCTM
--- NOTE | 2018-10-06 05:02 | NUR ---
10/06/18 0500 PT VOIDED AND URINE SENT TO LAB. HAD SEVERAL LOOSE STOOLS THIS SHIFT. SEE MAR FOR MEDS GIVEN INCLUDING IV FLUID BOLUS PER DR SHANNON. DR SHANNON WAS IN AROUND 2230 AND WAS TALKING TO PT'S FIANCEE. PT WAS AWARE,HE STATES, BUT APATHETIC ABOUT INFORMATION. PT OCC. RUDE TOWARDS STAFF AND FIANCEE. VITALS FLUCTUATE SOME BUT GENERALLY STABLE.
[2018-10-06 05:07] LABS: Appearance, Urine Clear (Clear); Blood, Urine 5+ (Neg); Color, Urine Amber (P-Yellow); Glucose Qualitative, Urine Neg (Neg); Ketones, Urine 1+ (Neg); Leukocyte Esterase, Urine 1+ (Neg); Nitrite, Urine Pos (Neg); Protein, Urine 2+ (Neg); Urobilinogen, Urine 3+ (Normal)
[2018-10-06 05:15] LABS: Bilirubin, Urine 3+ (Neg)
[2018-10-06 05:22] LABS: Squamous Epithelial Cells Rare /hpf (Few); White Blood Cells, Urine 0-2 /hpf (0-5)
[2018-10-06 05:23] LABS: Amorphous Light (0-Heavy); Bacteria Mod /hpf
[2018-10-06 05:30] LABS: BASOPHILS ABSOLUTE AUTO 0.04 K/mm3 (0.00-0.23); BASOPHILS PERCENT AUTO 1 % (0-2); EOSINOPHILS ABSOLUTE AUTO 0.27 K/mm3 (0.00-0.68); EOSINOPHILS PERCENT AUTO 3 % (0-6); Hematocrit 25.5 % (37.0-53.0); Hemoglobin 8.5 g/dL (13.5-17.5); IMMATURE GRAN ABSOLUTE AUTO 0.07 K/mm3 (0.00-0.10); IMMATURE GRAN PERCENT AUTO 1 % (0-1); LYMPHOCYTES ABSOLUTE AUTO 0.64 K/mm3 (0.84-5.20); LYMPHOCYTES PERCENT AUTO 8 % (21-46); MONOCYTES ABSOLUTE AUTO 0.99 K/mm3 (0.16-1.47); MONOCYTES PERCENT AUTO 12 % (4-13); Mean Corpuscular HGB 40.3 pg (26.0-34.0); Mean Corpuscular HGB Conc 33.3 g/dL (31.5-36.5); Mean Platelet Volume 10.6 fL (9.1-12.4); NEUTROPHILS ABSOLUTE AUTO 6.24 K/mm3 (1.96-9.15); NEUTROPHILS PERCENT AUTO 76 % (41-73); Platelet Count 56 K/mm3 (150-400); RDW Coefficient Variation 17.3 % (11.7-14.2); RDW Standard Deviation 77.3 fL (35.1-46.3); Red Blood Cell Count 2.11 M/mm3 (4.30-5.90); White Blood Cell Count 8.25 K/mm3 (4.00-11.30)
[2018-10-06 05:36] LABS: Mean Corpuscular Volume 121 fL (80-100)
[2018-10-06 05:38] LABS: International Normalized Ratio 2.17; Prothrombin Time Results 21.4 Sec (9.7-11.5)
[2018-10-06 06:27] LABS: Albumin, Blood 2.7 g/dL (3.4-5.0); Albumin/Globulin Ratio 1.1 (0.8-1.8); Bilirubin, Total 50.2 mg/dL (0.1-1.0); Bun/Creatinine Ratio 24.5 (12.0-20.0); Creatinine, Blood 2.29 mg/dL (0.60-1.20); Globulin, Blood 2.5 g/dL (2.2-4.0); Potassium, Blood 3.8 mmol/L (3.5-5.5); Total Protein, Blood 5.2 g/dL (6.4-8.2)
--- NOTE | 2018-10-06 10:41 | NUR ---
Pt resting in bed with his eyes closed and appears comfortable. Pt's significant other Bernadette present during visit. Engaged in therpautic conversation about concerns family are having. Bernadette reports that her and other family members are wanting direct conversation about Pt's prognosis and exprectations. Instructed Bernadette that Dr Cordon's plan to have this converation with family this evening. Bernadette is tearful at times throughout the visit and offered emotional support. Instructed Bernadette no contact palliative care if any other questions or concerns arise before planned visit tomorrow. Bernadette reports the promethazine is managing Pt's nausea. Spoke with Pt's nurse Liss and she reports no concerns at this time. Will remain available for symptom management and therapeutic visits.
--- NOTE | 2018-10-06 18:38 | NUR ---
Pt visit this evening. This RN present during Dr Cano's visit. Dr Cano engaged in difficult conversation with family about Pt's prognosis. Family tearful during conversation and this RN stayed after Dr Cano's visit to offer emotional support and answer questions or concerns. Pt is sleeping during conversation. Family would like to wait a while before giving Pt news of his prognosis. Respected family's wishes and did not tell Pt. Educated family on the importance of allowing Pt to know prognosis and they should give him the news sooner than later. Family would like Pt to go home on hospice. Educated family on hospice philosophy and comfort measures. Family will consider placing Pt on comfort measures while he is still in the hospital but would like a referral to hospice sooner than later. No other concerns reported at this time. Instructed family palliative care will visit again tomorrow. Plan is to place hospice referral and remain available for therapeutic visits and symptom management. Dr Cano will place DNR and DNI order per family request.
--- NOTE | 2018-10-06 19:00 | NUR ---
PT. HAS SLEPT MOS OF THE DAY HAS REFUSED VS AND MEDICATIONS, WAS ABLE TO GIVE THE IV MEDICATIONS. DR. CHRISITANSON WAS IN TO DISCUSS WITH FAMILY PT'S CONDITION AND PROGNOSIS. PT. IS NOW DNR AND PALLIATIVE CARE IS INVOLVED. MOST OF FAMILY PRESENT WHEN DR. CHRISTIANSON CAME IN.
[2018-10-07 05:18] LABS: Hematocrit 24.9 % (37.0-53.0); Hemoglobin 8.3 g/dL (13.5-17.5); Mean Corpuscular HGB 39.3 pg (26.0-34.0); Mean Corpuscular HGB Conc 33.3 g/dL (31.5-36.5); Mean Platelet Volume 10.7 fL (9.1-12.4); Platelet Count 55 K/mm3 (150-400); RDW Coefficient Variation 17.3 % (11.7-14.2); RDW Standard Deviation 75.4 fL (35.1-46.3); Red Blood Cell Count 2.11 M/mm3 (4.30-5.90); White Blood Cell Count 7.91 K/mm3 (4.00-11.30)
[2018-10-07 05:27] LABS: International Normalized Ratio 2.13; Prothrombin Time Results 21.1 Sec (9.7-11.5)
[2018-10-07 05:28] LABS: Mean Corpuscular Volume 118 fL (80-100)
[2018-10-07 06:01] LABS: Albumin, Blood 3.1 g/dL (3.4-5.0); Anion Gap 12 mmol/L (6-16); Blood Urea Nitrogen 52 mg/dL (8-24); Bun/Creatinine Ratio 22.4 (12.0-20.0); CO2, Blood 17 mmol/L (21-32); Calcium, Blood 8.4 mg/dL (8.5-10.1); Chloride, Blood 106 mmol/L (98-108); Creatinine, Blood 2.32 mg/dL (0.60-1.20); Glomerular Filtration Rate 33 (60-); Glucose, Blood 126 mg/dL (70-99); Phosphorus, Blood 3.4 mg/dL (2.5-4.9); Potassium, Blood 3.8 mmol/L (3.5-5.5); Sodium, Blood 135 mmol/L (136-145)
--- NOTE | 2018-10-07 07:14 | NUR ---
10/07/18 0600 PT SLEEPING MOST OF SHIFT. MEDICATED SEVRAL TIMES FOR NAUSEA. DENIES PAIN. VERY CARELESS WITH IV TUBING AND FREQUENTLY HAD TUBING WRAPPED AROUND HIS BODY. MOTHER STAYED WITH HIM ALL NIGHT. VITALS STABLE.
--- NOTE | 2018-10-07 09:46 | NUR ---
Pt visit this AM. Pt appears lethargic, skin is jaundice, but appears comfortable. Spoke with family and they request Pt be placed on comfort care during the rest of his hospital stay. Reinforced education on comfort care philosophy with V/U made by Pt's mother. Pt's mother request help with completing POLST form at some point but not at this time. Pt's mother also reports that family made Pt aware of prognosis. No other concerns reported at this time. Called and spoke with Dr Boyce regarding family's request to place Pt on comfort care and he is agreeable. Placed comfort care order, comfort care order set, and discontinued maintenance medications per V/O from Dr Boyce. Spoke with Pt's nurse Liss and she is agreeable with Plan. Called and spoke with home health care social worker Glo and discussed plan for home with hospice. Plan is to remain available for symptom management.
--- NOTE | 2018-10-07 10:48 | NUR ---
Pt visit this AM. Occupation Therapy in the Pt's room working with Pt upon entering the room. Instructed Pt that this RN will come back to visit at a later time or date. Pt expressed concerns about her amonia levels increasing even with taking lactulose. Educated Pt on disease process and also suggested she talks with her doctor about her treatment to ensure everything is being done for her. Pt reports that she completed her advance directive. Obtained copy of advance directive and faxed copy to medical records. Will remain available
--- NOTE | 2018-10-07 13:29 | NUR ---
Met with Massimo's mom, Alisha, at bedside. She responded well to me and appeared to benefit from being heard and affirmed. She was tearful and expressed enourmous sadness. She explained her fear that Massimo is being "judged" by other people as weak. Alisha explained that Massimo's son commited suicide 6 years ago, "and he has gone downhill since then." He never recieved bereavement rehabilitation services counselor. Alisha also had many questions about the dying process. I provided gentle rehabilitation services counselor and education to good effect. End-of-life educations booklets well recieved. This family is non-yarsani. I encouraged self-care and counseling. Provided my contact informatiom. Milo mostly slept through visit, but would awaken briefly and made random, unintelligable comments. That said, he denied pain or discomfort. I will remain available.
--- NOTE | 2018-10-07 19:00 | NUR ---
PT. CHANGED TO COMFORT CARE TODAY WILL BE GOING HOME ON HOSPICE WITHIN THE NEXT 2 DAYS. HAS DENIED ANY PAIN AT ALL. PT. [place] APPEAR CONFUSED.
--- NOTE | 2018-10-08 04:22 | NUR ---
SHIFT SUMMARY THE PATIENT IS ON COMFORT CARE. THE PATIENT WAS GIVEN 10 MG OF ROXANOL AT 2120 AND HAS SLEPT THE SHIFT AWAY. THE PATIENT WAS MOVED TO COMFORT CARE AND WILL GO HOME ON HOSPICE. WILL CONTINUE TO MONITOR.
--- NOTE | 2018-10-08 07:30 | NUR ---
PATIENT SLEEPING AT THIS TIME, S/O AT BEDSIDE. CALL LIGHT WITHIN REACH.
--- NOTE | 2018-10-08 11:34 | NUR ---
PATIENT SLEEPING AT THIS TIME. FAMIYL AT BEDSIDE. DENIES ANY NEEDS. INSTRUCTED TO CALL FOR ASSISTANCE.
--- NOTE | 2018-10-08 12:45 | NUR ---
Pt visit this afternoon. Pt resting in bed with his eyes closed and appears comfortable. Pt's mom present during visit. She inquires about Pt having a parencentesis. Insturcted her request will be made to Dr Boyce. She also inquired about Pt's plan for discharge and whether family will take him home or if he will be transported. No other concerns reported at this time. Called and spoke with Dr Boyce regarding parencentesis and he is agreeable. Dr Boyce reports that he will place the orders. Called and spoke with Glo regarding transportation upon discharge. Glo is agreeable to arrange transportation with [facility]. Will remain available for symptom management.
--- NOTE | 2018-10-08 14:43 | NUR ---
PATIENT SLEEPING AT THIS TIME. REPOSITIONS SELF IN BED. FAMILY REPORTS PATIENT SEEMS COMFORTABLE AND DENIES ANY NEEDS AT THIS TIME.
--- NOTE | 2018-10-08 17:52 | NUR ---
FAMILY AT BEDSIDE ASSISTING WITH PATIENT CARE. VERY LITTLE PO INTAKE THIS SHIFT. SLEPT MOST OF THE DAY. ZOFRAN GIVEN X1 THIS SHIFT FOR STATED NAUSEA. PATIENT DENIES ANY PAIN. 4L FLUID REMIVED DURING PARACENTESIS. PLAN IS TO D/C HOME TOMORROW ON HOSPICE.
--- NOTE | 2018-10-09 03:52 | NUR ---
SHIFT SUMMARY NO CHANGES OVERNIGHT. COMFORT ASSESSED T/O SHIFT. PT HAS SLEPT MOST OF THE NIGHT. PT FIANCE AT BEDSIDE AND HAS PROVIDED MOST OF THE CARE. FAMILY AND PT DENIES NEEDS T/O SHIFT. REMINDED TO CALL IF THERE WAS ANYTHING THEY NEEDED. PLAN IS FOR DC HOSPICE TODAY. WILL CONTINUE TO MONITOR AND REPORT TO ONCOMING RN.
--- NOTE | 2018-10-09 07:59 | NUR ---
PATIENT SLEEPING AT THIS TIME. S/O ZEYNEP AT BEDSIDE ASSISTING WITH CARE. PATIENT IS ABLE TO REPOSITION SELF IN BED. TOLERATING DIET. INSTRUCTED TO CALL FOR ASSISTANCE. DECEMBER D/C TODAY HOME ON HOSPICE.
[2018-10-09] MEDS ORDERED: LORA1 PO (09:29)
[2018-10-09] MEDS ORDERED: MORP20L SL (09:30)
[2018-10-09] MEDS ORDERED: PROM25 PO (09:32)
--- NOTE | 2018-10-09 10:00 | NUR ---
PATIENT D/C'D TO HOME WITH HOSPICE VIA [facility]. RX MEDICATIONS FAXED TO [facility] GIVEN TO S/O ZEYNEP FOR ATIVAN AND ROXINOL. D/C INSTRUCTIONS AND EDUCATION DISCUSSED WITH FAMILY AND COPY PROVIDED.
== END 2018-10-09 09:58 | disposition hospice, home (50) | DRG 442 ==
LOC: ER 16:51 → MEDS 19:46 → EDPENDDIS 10-08 06:45 → ENPENDDIS 10-08 06:45 → MEDS 10-09 09:58
PROVIDERS: Emergency Medicine; Internal Medicine; Internal Medicine Gastroenterology; Physician Assistant; ADMIT Hospitalist
DX: K72.01 Acute and subacute hepatic failure with coma (principal); N17.9 Acute kidney failure, unspecified; E87.1 Hypo-osmolality and hyponatremia; K56.7 Ileus, unspecified; Z51.5 Encounter for palliative care; D58.0 Hereditary spherocytosis; K21.9 Gastro-esophageal reflux disease without esophagitis; Z87.891 Personal history of nicotine dependence; K70.30 Alcoholic cirrhosis of liver without ascites; D69.6 Thrombocytopenia, unspecified; F10.10 Alcohol abuse, uncomplicated; K70.10 Alcoholic hepatitis without ascites; E87.6 Hypokalemia; K80.20 Calculus of gallbladder without cholecystitis without obstruction; E87.70 Fluid overload, unspecified; Z66 Do not resuscitate
CPT/HCPCS: 36415; 49083; 71046; 76705; 80053; 80069; 81001; 82042; 82103; 82105; 82140; 82390; 82525; 82550; 82570; 82607; 82728; 82746; 83010; 83516; 83540; 83550; 83605; 83615; 83690; 83735; 84100; 84157; 84300; 84478; 85025; 85027; 85045; 85610; 85730; 86038; 86317; 86704; 86708; 86803; 87040; 87070; 87077; 87186; 87205; 87340; 88108; 89051; 90686; 96365; 96366; 96375; 97161; 97165; 97530; 99285-25; G0480; J0696; J1650; J2405; J2550; J2765; J3010; J3370; J3411; J3430; J3475; J3480; J7030; J7042; J7050; J7060; J7120; P9046